=== PATIENT | female | born 1955 | race Caucasian/White ===

== ENCOUNTER 2020-05-31 06:35 | Day surgery (SDC) | payer OTHER ==
[~2020-05-31] VITALS: Ht 167.6 cm; Wt 66.7 kg
[~2020-05-31 06:35] MED LIST: FOLBIC TABLET1 EACH PO; ONE DAILY COMP1 EACH PO
--- NOTE | 2020-05-31 09:03 | NUR ---
05/31/20 0903 Taniya Peters 0846- PT ARRIVES TO PACU TALKING. PT IS TEARY EYED AND WORRIED ABOUT HER GRANDKIDS. PT UPDATED THAT HER PROCEDURE IS OVER AND THAT SHE IS IN THE RECOVERY ROOM. EDUCATED PT TO ATTEMPT TO RELAX AND SLEEP A LITTLE. PT IS ABLE TO RELAX AND CLOSE HER EYES. RESP EVEN AND UNLABORED. OXYGEN SAT HIGH 90'S TO 100% ON 6L VIA MASK. 0849- OXYGEN TITRATED OFF. 0850- XRAY AT THE BEDSIDE. 0852- DR. TRAMMELL AT THE BEDSIDE TO TALK WITH THE PT AND TO LOOK AT THE CHEST XRAY.
[2020-05-31] MEDS ORDERED: ACETAMINOPHEN500 MG PO (09:05)
[2020-05-31] MEDS ORDERED: IBUPROFEN600 MG PO (09:05)
[2020-05-31] MEDS ORDERED: OXYCODON-ACETA1 EAC2 PO (09:05)
--- NOTE | 2020-05-31 09:39 | NUR ---
PT VERY RELAXED, TRYING VERY HARD TO STAY ALERT, [employer] FOUL JUDGE HAS BEEN IN AND ADMINISTERED PRE-OP MEDS. PT SUPPORTED BY HER , GAVE BLESSING, FOLLOW NEEDED
--- NOTE | 2020-06-03 11:30 | OR ---
[facility] [address] [place], [place] [address] Signed DATE OF OPERATION: 05/31/2020 SURGEON: Main Trammell MD PREOPERATIVE DIAGNOSES: 1. Recurrent right lung cancer. 2. History of left upper lobectomy, 2000. 3. Status post thoracoscopic right lung resection, Dr. Main Thomas, [place], [place], 2018. POSTOPERATIVE DIAGNOSES: 1. Recurrent right lung cancer. 2. History of left upper lobectomy, 2000. 3. Status post thoracoscopic right lung resection, Dr. Main Thomas, [place], [place], 2018. PROCEDURE: 1. Left subclavian Port-A-Cath (Bard port catheter). 2. Surgeon-directed fluoroscopy. ANESTHESIA: Local with monitored anesthesia care, Shane Francois CRNA and local 10 mL of 0.25% Marcaine with epinephrine. INDICATION: This 64-year-old white woman is a patient of Jennifer Ruby. She lives in [place], [place]. She is also a patient of Dr. Dayo Smith in [place]. 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 She has had recurrence of lung cancer in the right upper lobe in 2018 and underwent thoracoscopic resection by Dr. Main Thomas in [place], [place]. She was under the care of Dr. Haseeb Cabrera for radiation therapy as well as Dr. Farshad Plunkett in [place], [place]. She is to undergo immunotherapy with infusions given every two weeks for the coming year. On that basis, a Port-A-Cath type device is needed. The risks of bleeding, infection, pneumothorax, failure of the device, need for other indicated procedure, and so forth were reviewed with her. She understands and wished to proceed. FINDINGS: Placement of the left subclavian Port-A-Cath went without problem. Good function of catheter is noted. The tip is in the superior vena cava. Configuration of the catheter shows no sign of kinking. There is good function. It is located over the left upper Electronically Signed By: MAIN TRAMMELL MD 06/03/20 1130 PATIENT NAME: MARKO RICO OPERATIVE REPORT DATE OF : 55 REPORT #: [id number] PHYSICIAN: MAIN TRAMMLEL MD PCP: JORDY NAGY MD REPORT IS CONFIDENTIAL AND NOT TO BE RELEASED WITHOUT AUTHORIZATION [facility] [address] [place], [place] [address] Signed chest area. DESCRIPTION OF PROCEDURE: The patient was brought to the operating room, placed in supine position, given intravenous sedation. Preoperative antibiotics were given. Sequential compression device stockings used. Heparin subcutaneously administered. Mild Trendelenburg position was maintained. The head was turned slightly to the right. Her preference was for a subclavian port on the left side considering her activity and shooting sports and so on. The upper torso was prepared with a chlorhexidine solution and draped sterilely. The left infraclavicular space was anesthetized with 0.25% lidocaine with epinephrine. Using the Seldinger technique, the left subclavian vein was easily accessed showing dark nonpulsatile blood. Fluoroscopic control showed the wire to be possibly coursing into the azygos system and on fluoroscopic control, the wire was manipulated, withdrawn, and ultimately advancing to a position that was appropriate for placement. The local anesthetic was injected transversely over the left superior pectoral area. A transverse incision was made and using electrocautery, pocket created directly over the pectoralis fascia. The site where a wire was emanating from the skin was incised with an #11 blade and the dilator and peel-away sheath introducer passed over the wire. The wire and the dilator were removed showing vigorous dark non-pulsatile retrograde bleeding. The previously inspected Groshong type catheter was passed down the sheath and the sheath removed after stabilization of the catheter. The patient was then returned to a neutral position out of Trendelenburg. A small amount of contrast was used in the catheter and the catheter was withdrawn for the tip to be appropriately positioned in the superior vena cava. The port had previously been partially secured to the pectoralis fascia. A tunneling device was used to deliver the catheter to the pocket. The catheter was trimmed to the appropriate length and secured to the port device within close collar device per manufacture's instructions. The sutures were secured and access to the port with angled Wilkins needle showed easy withdrawal of blood and easy infusion of heparinized saline. Fluoroscopic evaluation was repeated, however, there appeared to be a kink, although not functionally a problem. The sutures were removed from the port and its position on the pectoralis and reapplied and repeat fluoroscopic examination showed the catheter now to have a better configuration. The port was reaccessed and using an angled Wilkins needle and heparinized saline, easy withdrawal of blood and infusion of saline was noted. The port was then closed with interrupted 2-0 Vicryl and skin was closed with running subcuticular 3-0 Vicryl. Steri-Strips were applied as was a silver sponge dressing. The patient was transferred to the recovery room in good condition emerging from sedation. Postprocedure chest x-ray showed good tip position in the superior vena cava and no Electronically Signed By: MAIN TRAMMELL MD 06/03/20 1130 PATIENT NAME: MARKO RICO NAIF GIRON OPERATIVE REPORT DATE OF : 55 REPORT #: [id number] PHYSICIAN: MAIN TRAMMELL MD PCP: JORDY NAGY MD REPORT IS CONFIDENTIAL AND NOT TO BE RELEASED WITHOUT AUTHORIZATION [address] [place], [place] [address] Signed evidence of pneumothorax or other problem. MD RACH Garcia/HENRIETTA /[id number] cc: MD Main Colin Jr, AMILCAR Whyte DO Copies: JEREMY SMITH MD, JR,JENNIFER NEWBY MD, JANMEET S DO ~ Electronically Signed By: MAIN TRAMMELL MD 06/03/20 1130 PATIENT NAME: MARKO RICO NAIF GIRON OPERATIVE REPORT DATE OF : 55 REPORT #: [id number] PHYSICIAN: MAIN TRAMMELL MD PCP: JORDY NAGY MD REPORT IS CONFIDENTIAL AND NOT TO BE RELEASED WITHOUT AUTHORIZATION
== END 2020-05-31 09:45 | disposition home or self-care (01) ==
LOC: OPS 06:35 → DS 06:35 → OPS 07:00
PROVIDERS: ATTEND Surgery
PROC: 05H633Z Insertion of Infusion Device into Left Subclavian Vein, Percutaneous Approach (ICD-10-PCS; 2020-05-31)
PROC: B517ZZA Fluoroscopy of Left Subclavian Vein, Guidance (ICD-10-PCS; 2020-05-31)
PROC: 0JH60WZ Insertion of Totally Implantable Vascular Access Device into Chest Subcutaneous Tissue and Fascia, Open Approach (ICD-10-PCS; principal; 2020-05-31 07:00)
DX: C34.91 Malignant neoplasm of unspecified part of right bronchus or lung (principal); D64.9 Anemia, unspecified; Z87.891 Personal history of nicotine dependence; Z90.2 Acquired absence of lung [part of]; Z79.899 Other long term (current) drug therapy
CPT/HCPCS: 00532; 71045; 77001; 80053; 82024; 82533; 83615; 84443; 85025; C1788; J0690; J1644; J1885; J2001; J2250; J2704; J3010; J7121

== ENCOUNTER 2020-12-16 23:38 | Emergency (ER) | payer MEDICARE ==
[~2020-12-16] VITALS: Ht 167.6 cm; Wt 66.0 kg
[~2020-12-16 23:38] MED LIST changes: +ACETAMINOPHEN500 MG PO; +IBUPROFEN600 MG PO; +OMEPRAZOLE20 M1 PO; +ONDANSETRON ODT8 MG PO; +OXYCODON-ACETA1 EAC2 PO
--- OUTSIDE RECORDS SUMMARY | 2020-12-16 23:40 | XMS ---
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 EKrystle VISIT COUNT (12 MO.) 1 [facility] Cher Puentes 1 AARON Almendarez TOTAL 2 NOTE: Visits indicate total known visits. ED/UCC VISIT TRACKING (12 MO.) 12/16/2020 23:39 [place] TYPE: Emergency COMPLAINT: - L ARM PAIN 06/05/2020 01:[address] [facility] [place] TYPE: Emergency COMPLAINT: - HEAD LACERATION DIAGNOSES: - Bedroom of single-family (private) house as the place of occurrence of the external cause - Nausea - Personal history of nicotine dependence - Alcohol use, unspecified with intoxication, unspecified - Laceration without foreign body of unspecified part of head, initial encounter - Fall from bed, initial encounter - Malignant neoplasm of unspecified part of unspecified bronchus or lung - Other specified anxiety disorders - Gastro-esophageal reflux disease without esophagitis INPATIENT VISIT TRACKING (12 MO.) No inpatient visits to display in this time frame [email or web address]
[2020-12-17] MEDS ORDERED: DOXYCYCLINE HY100 MG PO (02:30)
== END 2020-12-17 02:43 | disposition home or self-care (01) ==
LOC: ED 23:38
DX: L03.114 Cellulitis of left upper limb (principal); Z85.118 Personal history of other malignant neoplasm of bronchus and lung; Z87.891 Personal history of nicotine dependence; Z79.899 Other long term (current) drug therapy
CPT/HCPCS: 80053; 85025; 93971; 99284-25

== ENCOUNTER 2022-05-19 05:40 | Day surgery (SDC) | payer MEDICARE ==
[~2022-05-19] VITALS: Ht 167.6 cm; Wt 59.1 kg
[~2022-05-19 05:40] MED LIST changes: +DOXYCYCLINE HY100 MG PO
[2022-05-19] MEDS ORDERED: TYLENOL325 MG PO (06:16)
--- NOTE | 2022-05-19 08:18 | NUR ---
PT ALERT, ORIENTED AND HAD A VERY EARLY START TO HER DAY TO ARRIVE ON TIME. SHE IS SUPPORTED BY HER . HE WILL REMAIN FOR DC. PT HERE FOR ROUTINE SCOPE, ALL QUESTIONS ASKED ANSWERED. BLESSING GIVEN, WILL FOLLOW
--- NOTE | 2022-05-19 08:35 | NUR ---
05/19/22 0835 Nadia Rolle 0816 PT ARRIVED TO PACU ON RA, PT WAKES AND IS REORIENTED TO PACU. VSS. PT DENIES PAIN AND NAUSEA. 0830 PT SITTING UP IN BED AND HOB INCREASED. PT SIPPING WATER PER REQUEST.
--- NOTE | 2022-05-20 09:48 | OR ---
[facility] [address] [place], [place] [address] Signed DATE OF OPERATION: 05/19/2022 SURGEON: Main Trammell MD PREOPERATIVE DIAGNOSIS: Colon screening. POSTOPERATIVE DIAGNOSES: 1. Sigmoid diverticulosis. 2. Multiple polyps (six). PROCEDURES: 1. Total colonoscopy to cecum with cold morcellation. 2. Excision of polyps x2. 3. Cold snare polypectomy x1. 4. Hot snare polypectomy x2. 5. Mucosal lift hot snare polypectomy with tattoo (at 40 cm). ANESTHESIA: Propofol infusion, Kingsley Steiner CRNA INDICATIONS: This 66-year-old white woman is a patient of Dr. Uribe in [place] as well as Dr. [place]. She is well known to me from the past having undergone lung resection for cancer in 2001 and subsequent recurrence with resection elsewhere ([place], [place]) in 2018. She has undergone chemotherapy as well. She last underwent colonoscopy by me in 2011, which was normal. She is symptom free having no bleeding, diarrhea, or constipation. Has no family history of colon cancer. She is admitted to undergo colonoscopy, understands the risks of bleeding, infection, or perforation. FINDINGS: The prep was good. Complete colonoscopy was undertaken of the cecum. She had six polyps in total; this included the cecum, the right colon, splenic flexure, left colon at 40 cm, sigmoid at 30 cm, and the rectosigmoid. A combination of techniques was used for resection. There were no remaining polyps that are known and complete resection of all polyps has been accomplished. 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 Digital rectal examination was normal. An Olympus video colonoscope was passed into the rectum and manipulated throughout the colon. Numerous diverticula were seen in the sigmoid colon. The scope was ultimately advanced to the cecum. In the distal cecum was a small sessile polyp, this was excised with cold morcellation technique. The scope was further withdrawn and a somewhat larger sessile polyp was noted in the mid ascending colon, this was excised with cold snare technique. A suction technique was used to collect the polyp and passed for pathology. Further withdrawal of scope showed a small polyp of the splenic flexure, which was excised with cold snare technique. Further withdrawal showed a larger 2 cm polyp in the left colon at about 40 cm. This was broad-based and mucosal lift technique was indicated. Using a sclerotherapy needle and spot tattoo ink, mucosal lift was undertaken adjacent to the polyp, elevated and away from the wall of the colon. Using hot snare technique, the polyp was excised fully. Size of the polyp commanded use of a Vyas Net grasping the polyp and withdrawing it fully through the colon. Polyp was offloaded and the scope reintroduced and passed to the level of excision, confirming good hemostasis and optimal polypectomy configuration. The scope was withdrawn, not far from there was an another sessile polyp was excised with hot snare technique as well. This was grasped and withdrawn with the Vyas Net and offloaded once again. The scope was once again reintroduced and another small polyp was noted in the rectosigmoid. This was excised with cold morcellation technique. Retroflexed view showed some internal hemorrhoidal changes. Scope was removed, the patient was taken to the recovery room in good condition. CONCLUDING DIAGNOSIS: 1. Polyps x6, all excised. 2. Diverticulosis. PLAN: We would recommend colonoscopy no later than three years. We will check pathology report, especially as regard the lesion at 40 cm. She will return to the ongoing care of Dr. Uribe in [place], [place] as well as Dr. [place], her oncologist. I would like to see her back in the office in three years or sooner if clinically indicated. Main Trammell MD /TRAMAINEL /[id number] Electronically Signed By: MAIN TRAMMELL MD 05/20/22 0948 PATIENT NAME: MARKO RICO OPERATIVE REPORT DATE OF : 55 REPORT #: [id number] PHYSICIAN: MAIN TRAMMELL MD PCP: JORDY NAGY MD REPORT IS CONFIDENTIAL AND NOT TO BE RELEASED WITHOUT AUTHORIZATION [facility] [address] [place] [id number] Signed cc: MD Dr. Rony Lawson [place] Copies: JORDY NAGY MD ~ Electronically Signed By: MAIN TRAMMELL MD 05/20/22 0948 PATIENT NAME: RICOMARKO OPERATIVE REPORT DATE OF : 55 REPORT #: [id number] PHYSICIAN: MAIN TRAMMELL MD PCP: JORDY NAGY MD REPORT IS CONFIDENTIAL AND NOT TO BE RELEASED WITHOUT AUTHORIZATION
--- NOTE | 2022-05-22 12:09 | PATH ---
[facility] [address] [place] [address] Signed SPECIMEN(S): A CECAL POLYP SPECIMEN(S): B ASCENDING/RIGHT COLON POLYP SPECIMEN(S): C DESCENDING/LEFT COLON POLYP AT 40 CM SPECIMEN(S): D SPLENIC FLEXURE POLYP SPECIMEN(S): E DESCENDING/LEFT COLON POLYP SPECIMEN(S): F RECTOSIGMOID POLYP SPECIMEN SOURCE: A. CECAL POLYP B. ASCENDING/RIGHT COLON POLYP C. DESCENDING/LEFT COLON POLYP AT 40 CM D. SPLENIC FLEXURE POLYP E. DESCENDING/LEFT COLON POLYP F. RECTOSIGMOID POLYP CLINICAL HISTORY: History of lung cancer, colon screening. Postop diagnosis: Multiple polyps; diverticulosis FINAL PATHOLOGIC DIAGNOSIS: A. Cecal polyp: - Tubulovillous adenoma (one fragment). B. Ascending / right colon polyp: - Tubular adenoma (multiple fragments). C. Descending / left colon polyp at 40 cm: - Tubular adenoma. D. Splenic flexure polyp: - Tubular adenoma (one fragment). E. Descending / left colon polyp: - Tubular adenoma. F. Rectosigmoid polyp: - Hyperplastic polyp (two fragments). JVR:sm:C2NR MICROSCOPIC EXAMINATION: Histologic sections of all submitted blocks are examined by light microscopy. These findings, together with the gross examination, support the pathologic diagnosis. GROSS DESCRIPTION: Six specimens are received in six containers, labeled "KODY." PATIENT NAME: RICOMARKO PATHOLOGY DATE OF : 55 REPORT #: [id number] PHYSICIAN: MAGDALENE VENTURA PCP: JORDY NAGY MD REPORT IS CONFIDENTIAL AND NOT TO BE RELEASED WITHOUT AUTHORIZATION [facility] [address] [place], [place] [address] Signed A. The specimen, labeled "KODY, 1," and designated on the requisition "cecum polypectomy," is received in formalin and consists of four floyd soft tissue fragments that measure 0.2 to 0.3 cm in greatest dimension. The specimen is entirely submitted in cassette (A1). B. The specimen, labeled "KODY, 2," and designated on the requisition "ascending/right polypectomy," is received in formalin and consists of multiple yellow vegetable material and floyd soft tissue fragments that measure less than 0.1 up to 0.6 cm in greatest dimension. The specimen is entirely submitted in cassette (B1). C. The specimen, labeled "KODY, 3," and designated on the requisition "descending/left polypectomy 40 cm," is received in formalin and consists of a previously black tattoo dyed, 1.6 cm in greatest dimension, floyd, soft tissue polyp. The resection margin is inked blue and the specimen is cross-sectioned. Also in the container is a scant amount of floyd soft tissue fragment from less than 0.1 up to 0.3 cm in greatest dimension. The specimen is submitted entirely as follows: C1 polyp C2 remaining specimen D. The specimen, labeled "KODY, 4," and designated on the requisition "splenic flexure polypectomy," is received in formalin and consists of multiple floyd-white to floyd soft tissue fragments that measure less than 0.1 up to 0.3 cm in greatest dimension. The specimen is entirely submitted in cassette (D1). E. The specimen, labeled "KODY, 5," and designated on the requisition "colon descending/left polypectomy," is received in formalin and consists of a 0.8 cm in greatest dimension, floyd-brown polyp. The resection margin is inked blue and the polyp is bisected. Also in the container are multiple floyd soft tissue fragment from less than 0.1 up to 0.2 cm in greatest dimension. The specimen is submitted entirely as follows: E1 polyp E2 remaining specimen F. The specimen, labeled "KODY, 6," and designated on the requisition "sigmoid rectum polypectomy," is received in formalin and consists of two floyd soft tissue fragments that measure 0.3 and 0.4 cm in greatest dimension. The specimen is entirely submitted in cassette (F1). AI (under the direct supervision of a pathologist) The Gross Description was prepared using a voice recognition system. The report was reviewed for accuracy; however, sound-alike word errors, addition and/or PATIENT NAME: MARKO RICO PATHOLOGY DATE OF : 55 REPORT #: [id number] PHYSICIAN: MAGDALENE VENTURA PCP: JORDY NAGY MD REPORT IS CONFIDENTIAL AND NOT TO BE RELEASED WITHOUT AUTHORIZATION [address] [address] Signed deletions may occur. If there is any question about this report, please contact Client Services. PERFORMING LABORATORY: The technical component was performed by [facility], [address] [place] [address] (CLIA# [id number]). Professional interpretation was performed by [facility], [address] [place] [address], [place] [address] (CLIA#: [id number]). Diagnostician: Buster Rivas MD Pathologist Electronically Signed 05/22/2022 Copies: ~ PATIENT NAME: MARKO RICO JOSY PATHOLOGY DATE OF : 55 REPORT #: [id number] PHYSICIAN: MAGDALENE PATHOLOGY PCP: JORDY NAGY MD REPORT IS CONFIDENTIAL AND NOT TO BE RELEASED WITHOUT AUTHORIZATION
== END 2022-05-19 09:09 | disposition home or self-care (01) ==
LOC: DS 05:40 → OPS 05:40 → DS 07:30 → OPS 08:30 → DS 10:00 → OPS 10:00
PROVIDERS: ATTEND Surgery
PROC: 0DBN8ZX Excision of Sigmoid Colon, Via Natural or Artificial Opening Endoscopic, Diagnostic (ICD-10-PCS; 2022-05-19)
PROC: 0DBK8ZX Excision of Ascending Colon, Via Natural or Artificial Opening Endoscopic, Diagnostic (ICD-10-PCS; 2022-05-19)
PROC: 0DBL8ZX Excision of Transverse Colon, Via Natural or Artificial Opening Endoscopic, Diagnostic (ICD-10-PCS; 2022-05-19)
PROC: 0DBG8ZX Excision of Left Large Intestine, Via Natural or Artificial Opening Endoscopic, Diagnostic (ICD-10-PCS; 2022-05-19)
PROC: 3E0H8GC Introduction of Other Therapeutic Substance into Lower GI, Via Natural or Artificial Opening Endoscopic (ICD-10-PCS; 2022-05-19)
PROC: 0DBH8ZX Excision of Cecum, Via Natural or Artificial Opening Endoscopic, Diagnostic (ICD-10-PCS; principal; 2022-05-19 08:30)
DX: Z12.11 Encounter for screening for malignant neoplasm of colon (principal); D12.0 Benign neoplasm of cecum; D12.2 Benign neoplasm of ascending colon; D12.4 Benign neoplasm of descending colon; D12.3 Benign neoplasm of transverse colon; K63.5 Polyp of colon; K21.9 Gastro-esophageal reflux disease without esophagitis; K57.30 Diverticulosis of large intestine without perforation or abscess without bleeding; K64.8 Other hemorrhoids; Z98.1 Arthrodesis status; Z85.118 Personal history of other malignant neoplasm of bronchus and lung; Z80.1 Family history of malignant neoplasm of trachea, bronchus and lung; Z95.828 Presence of other vascular implants and grafts; Z90.2 Acquired absence of lung [part of]; Z20.822 Contact with and (suspected) exposure to COVID-19
CPT/HCPCS: 00811; 88305; J2704; J3010; J7121; U0003

== ENCOUNTER 2022-10-20 06:46 | Day surgery (SDC) | payer MEDICARE ==
[~2022-10-20] VITALS: Ht 167.6 cm; Wt 60.0 kg
[~2022-10-20 06:46] MED LIST changes: +TYLENOL325 MG PO
[2022-10-20] MEDS ORDERED: PERCOCET 7.5-31 EACH PO (10:11)
[2022-10-20] MEDS ORDERED: MOTRIN IB200 MG PO (10:11)
--- NOTE | 2022-10-20 10:16 | NUR ---
10/20/22 1016 Ndaia Rolle 1627 PT ARRIVED TO PACU TALKING AND MOVING AROUND IN BED, PT EYES REMAIN CLOSED AND RN REORIENTING PT TO PACU. 1005 PT EYES OPEN AND PT DENIES CONCERNS. PT TEARFUL ABOUT FAMILY. 1013 MD AT BEDSIDE TALKING TO PT. PLAN OF CARE DISCUSSED. PT RESTING WITH EYES CLOSED OFF AND ON. PT SIPPIG SODA PER REQUEST.
--- NOTE | 2022-10-20 20:49 | OR ---
[facility] [address] [place], [place] [address] Signed DATE OF OPERATION: 10/20/2022 SURGEON: Main Trammell MD PREOPERATIVE DIAGNOSES: 1. History of lung cancer in 2000 and recurrence in 2009. 2. History of chemotherapy and left subclavian Port-A-Cath device. POSTOPERATIVE DIAGNOSES: 1. History of lung cancer in 2000 and recurrence in 2009. 2. History of chemotherapy and left subclavian Port-A-Cath device. PROCEDURE: Explantation of left subclavian Port-A-Cath device. ANESTHESIA: Local with monitored anesthesia care, Ray Siemens STAFF NURSE MIDWIFE and local 0.25% Marcaine with epinephrine 5 mL. INDICATION: This 66-year-old white woman who was known to me from the past had undergone left lung resection in 2000 for lung cancer. She had recurrent cancer in 2009 and underwent chemotherapy and additional surgery elsewhere. She has finished chemotherapy in recent times and has not used her Port-A-Cath device located in the left subclavian area since June 2021 explantation of the catheter is indicated. The risks of bleeding, infection, other unforeseen complications was reviewed with her, she understands and wished to proceed. FINDINGS: A well encapsulated port was noted. Complete explantation of port and catheter was undertaken without problem. PROCEDURE IN DETAIL: The patient was brought to the operating room, placed in supine position and left upper chest and area of left subclavian Port-A-Cath prepared with a chlorhexidine based solution. She was given intravenous sedation with propofol infusional technique. No antibiotics were given preoperatively. After satisfactory sedation, 0.25% Marcaine with epinephrine was injected locally along the previous incision site. An incision was made with a 15 blade and carried through the subcutaneous tissue with blunt electrocautery dissection. Catheter was easily identified and carefully insinuated from its tunnel Electronically Signed By: MAIN TRAMMELL MD 10/20/22 2049 PATIENT NAME: MARKO RICO OPERATIVE REPORT DATE OF : 55 REPORT #: [id number] PHYSICIAN: MAIN TRAMMELL MD PCP: COBY ROBERTS DO REPORT IS CONFIDENTIAL AND NOT TO BE RELEASED WITHOUT AUTHORIZATION [facility] [address] [place], [place] [address] Signed with a hemostatic completely explanted it. The tunnel site was secured with a hemostat. Electrocautery was used to incise the capsule of the port which was then explanted without problem. It was passed off the table. After inspection by all parties showing complete intact catheter as well as the port itself. The wound was then closed in layers of interrupted 3-0 Vicryl and a running subcuticular 3-0 Vicryl. Steri-Strips were applied as was an Acticoat dressing. Blood loss was minimal. Complications none. MD RACH Garcia/TRAMAINEL /[id number] cc: Jordy [place] MD Copies: JORDY NAGY MD ~ Electronically Signed By: MAIN TRAMMELL MD 10/20/22 2049 PATIENT NAME: MARKO RICO OPERATIVE REPORT DATE OF : 55 REPORT #: [id number] PHYSICIAN: MAIN TRAMMELL MD PCP: COBY ROBERTS DO REPORT IS CONFIDENTIAL AND NOT TO BE RELEASED WITHOUT AUTHORIZATION
== END 2022-10-20 10:45 | disposition home or self-care (01) ==
LOC: OPS 06:46 → DS 06:46 → OPS 08:45 → DS 08:45 → OPS 10:45
PROVIDERS: ATTEND Surgery
DX: Z45.2 Encounter for adjustment and management of vascular access device (principal); Z85.118 Personal history of other malignant neoplasm of bronchus and lung; Z80.1 Family history of malignant neoplasm of trachea, bronchus and lung; Z72.89 Other problems related to lifestyle; Z97.8 Presence of other specified devices
CPT/HCPCS: 36415; 80048; 85025; 85060; J2250; J2704; J3010; J7121